=== PATIENT | female | born 1945 | race Two or more races ===

== ENCOUNTER 2023-09-17 13:06 | Inpatient (IN) | payer OTHER ==
[~2023-09-17] VITALS: Ht 165.1 cm; Wt 57.1 kg
[2023-09-17 14:33] LABS: Basophils # (auto) 0.1 10 ^3/uL (0-0.2); Basophils % (auto) 0.8 % (0.0-2.0); Eosinophils # (auto) 0.1 10 ^3/uL (0-0.8); Eosinophils % (auto) 0.6 % (0.0-7.0); Hematocrit 45.3 % (36.0-46.0); Hemoglobin 15.2 g/dL (12.2-16.2); Lymphocytes # (auto) 2.3 10 ^3/uL (0.4-5.4); Lymphocytes % (auto) 21.2 % (10.0-50.0); Mean Corpuscular Hemoglobin 32.8 pg (28.0-32.0); Mean Corpuscular Hgb Conc. 33.6 g/dL (32.0-36.0); Mean Corpuscular Volume 97.7 fL (80.0-100.0); Monocytes # (auto) 0.6 10 ^3/uL (0-1.3); Monocytes % (auto) 5.8 % (0.0-12.0); Neutrophils # (auto) 7.6 10 ^3/uL (1.6-8.6); Neutrophils % (auto) 71.6 % (37.0-80.0); Red Blood Cells 4.64 10^6/uL (4.0-5.20); Red Cell Distribution Width 13.6 % (11.8-14.3); White Blood Cell 10.6 10^3/uL (4.4-10.8)
[2023-09-17 14:56] LABS: Alanine Aminotransferase 27 U/L (7-40); Albumin 4.6 g/dL (3.2-4.8); Alkaline Phosphatase 124 U/L (46-116); Anion Gap 11 (5-15); Aspartate Aminotransferase 20 U/L (13-40); BUN/Creatinine Ratio 14.4 (10.0-20.0); Blood Urea Nitrogen 18 mg/dL (9-23); Calcium 9.8 mg/dL (8.7-10.4); Carbon Dioxide 24 mmol/L (20-30); Chloride 108 mmol/L (98-107); Glucose 133 mg/dL (74-106); Potassium 4.4 mmol/L (3.5-5.1); Sodium 143 mmol/L (136-145)
[2023-09-17 14:57] LABS: Bilirubin, Total 0.8 mg/dL (0.2-1.0); Total Protein 7.6 g/dL (5.7-8.2)
[2023-09-17] MEDS: IOHEXOL 350 MG/ML 100ML IJ ONE (17:10)
[2023-09-17] MEDS ORDERED: ONDANSETRON HCL 4 MG/2 ML VIAL IV PRN (21:30)
[2023-09-17] MEDS ORDERED: DOCUSATE SOD 100 MG CAP PO PRN (21:30)
[2023-09-17] MEDS ORDERED: ACETAMINOPHEN 325 MG TAB PO PRN (21:30)
[2023-09-17] MEDS ORDERED: DEXTROSE (50%) 50ML SYRG IV PRN (21:30)
[2023-09-17] MEDS ORDERED: HYDROcodone-ACET 5/325MG TAB PO PRN (21:30)
[2023-09-17] MEDS ORDERED: hydrALAZINE HCL 20 MG/ML VL IV PRN (21:30)
[2023-09-17] MEDS: ATORVASTATIN 20 MG TAB PO SCH (22:00)
[2023-09-17] MEDS: ACCU-CHEK COMFORT CURVE STRIP VI SCH (22:00)
[2023-09-17] MEDS: SODIUM CHLOR 0.9% PF (SALINE LOCK) 10ML VIAL/SYR IV SCH (22:00)
[2023-09-17] MEDS: InsuLIN REG 1unit/0.01ml Soln (100units/ml) SC SCH (22:00)
[2023-09-17] MEDS ORDERED: MORPHINE SULFATE INJ 2 MG/ml SYRG IV PRN (23:15)
[2023-09-17] MEDS ORDERED: NITROGLYCERIN 0.4 MG SL TAB SL PRN (23:15)
[2023-09-18 04:10] VITALS: PULSE 83; RESP 28; O2SAT 94
[2023-09-18 04:45] LABS: Basophils # (auto) 0.1 10 ^3/uL (0-0.2); Basophils % (auto) 0.9 % (0.0-2.0); Eosinophils # (auto) 0 10 ^3/uL (0-0.8); Eosinophils % (auto) 0.4 % (0.0-7.0); Hematocrit 43.4 % (36.0-46.0); Hemoglobin 14.5 g/dL (12.2-16.2); Lymphocytes # (auto) 2.8 10 ^3/uL (0.4-5.4); Lymphocytes % (auto) 23.6 % (10.0-50.0); Mean Corpuscular Hemoglobin 32.7 pg (28.0-32.0); Mean Corpuscular Hgb Conc. 33.5 g/dL (32.0-36.0); Mean Corpuscular Volume 97.9 fL (80.0-100.0); Monocytes % (auto) 8.4 % (0.0-12.0); Neutrophils % (auto) 66.7 % (37.0-80.0); Red Blood Cells 4.44 10^6/uL (4.0-5.20)
[2023-09-18 05:03] LABS: Alanine Aminotransferase 33 U/L (7-40); Albumin 4.3 g/dL (3.2-4.8); Alkaline Phosphatase 109 U/L (46-116); Anion Gap 12 (5-15); Aspartate Aminotransferase 32 U/L (13-40); BUN/Creatinine Ratio 15.9 (10.0-20.0); Bilirubin, Total 0.7 mg/dL (0.2-1.0); Blood Urea Nitrogen 18 mg/dL (9-23); Calcium 9.2 mg/dL (8.7-10.4); Carbon Dioxide 21 mmol/L (20-30); Chloride 103 mmol/L (98-107); Glucose 170 mg/dL (74-106); Potassium 3.6 mmol/L (3.5-5.1); Sodium 136 mmol/L (136-145); Total Protein 7.3 g/dL (5.7-8.2)
[2023-09-18 05:18] LABS: Urine Bacteria FEW /hpf (None Seen); Urine Blood Negative /uL (Negative); Urine Clarity Clear (Clear); Urine Color Light-Yellow (Yellow); Urine Protein, UAD TRACE (Negative); Urine Urobilinogen Normal (Negative); Urine WBC 23 /hpf (0 - 5); Urine pH 5.5 (5.0-9.0)
[2023-09-18 05:37] LABS: Urine Specific Gravity 1.045 (1.001-1.035)
[2023-09-18 07:55] VITALS: PULSE 79; RESP 20; O2SAT 95
[2023-09-18 09:32] LABS: Magnesium 1.8 mg/dL (1.6-2.6)
[2023-09-18 10:34] VITALS: BP 133/62; PULSE 76; RESP 18; TEMP 97.8; O2SAT 95
[2023-09-18 14:34] VITALS: PULSE 76; RESP 18; O2SAT 95
[2023-09-18] MEDS: metFORMIN HYDROCHLORIDE 850 MG TAB PO ONE (18:38)
[2023-09-18] MEDS: metFORMIN HYDROCHLORIDE 850 MG TAB PO SCH (18:40)
[2023-09-18 21:00] VITALS: BP 131/67; PULSE 87; RESP 20; TEMP 98.1; O2SAT 93
[2023-09-18] MEDS: ASPirin 81 mg TAB PO SCH (21:53)
[2023-09-18] MEDS: amLODIPine BESYLATE 5 MG TAB PO SCH (21:55)
[2023-09-18] MEDS: BENAZEPRIL HCL 10 MG TAB PO SCH (22:04)
[2023-09-19 05:00] VITALS: BP 101/40; PULSE 80; RESP 17; TEMP 98.1; O2SAT 94
[2023-09-19 08:00] VITALS: PULSE 77; PULSE 79; RESP 18; O2SAT 96
[2023-09-19 09:00] VITALS: BP 104/58; PULSE 82; RESP 16; TEMP 98.1; O2SAT 94
[2023-09-19 13:00] VITALS: BP 104/64; PULSE 77; RESP 18; TEMP 98; O2SAT 96
[2023-09-19] MEDS ORDERED: ALEN70TA74 PO (13:35)
[2023-09-19] MEDS ORDERED: METF-371 PO (13:35)
[2023-09-19] MEDS ORDERED: BENA40TA71 PO (13:35)
[2023-09-19] MEDS ORDERED: AMLO1TAB22 PO (13:35)
[2023-09-19] MEDS ORDERED: ATEN-60 PO (13:35)
[2023-09-19] MEDS ORDERED: ATOR20TA50 PO (13:35)
[2023-09-19 16:36] VITALS: BP 104/58; PULSE 77; RESP 18; TEMP 98; O2SAT 96
[2023-09-19 17:00] VITALS: BP 106/44; PULSE 60; RESP 16; TEMP 97.8; O2SAT 94
== END 2023-09-19 17:20 | disposition home or self-care (01) | DRG 312 ==
LOC: ER 13:06 → EDBD 13:06 → TELE 23:11 → TELE-E-ADS 09-18 10:34 → TELE-EAST 09-18 21:05
PROVIDERS: ADMIT Internal Medicine Geriatric Medicine; ATTEND Internal Medicine Geriatric Medicine
DX: I95.2 Hypotension due to drugs (principal); E11.65 Type 2 diabetes mellitus with hyperglycemia; E66.9 Obesity, unspecified; E78.5 Hyperlipidemia, unspecified; I10 Essential (primary) hypertension; R07.89 Other chest pain; T50.995A Adverse effect of other drugs, medicaments and biological substances, initial encounter; Z90.49 Acquired absence of other specified parts of digestive tract; Z68.20 Body mass index [BMI] 20.0-20.9, adult; Z79.899 Other long term (current) drug therapy; Y92.89 Other specified places as the place of occurrence of the external cause
CPT/HCPCS: 36415; 70450; 70551; 71045; 71275; 80053; 80061; 81001; 82962; 83036; 83605; 83735; 83880; 84443; 84484; 85025; 85379; 87040; 93306; 93886; G0378